=== PATIENT | male | born 1955 | race Hispanic/Latino ===

== ENCOUNTER → 2022-12-18 | Outpatient (CLI) | payer MEDICARE | END | disposition home or self-care (01) | LOC: RAH 12:32 | PROVIDERS: ATTEND Internal Medicine | DX: M48.07 Spinal stenosis, lumbosacral region (principal); M54.40 Lumbago with sciatica, unspecified side; M47.26 Other spondylosis with radiculopathy, lumbar region; M48.04 Spinal stenosis, thoracic region | CPT/HCPCS: 72148 ==